=== PATIENT | female | born 1960 | race Caucasian/White ===

== ENCOUNTER 2020-05-13 09:32 | Emergency (ER) | payer MEDICARE, MEDICAID, SELFPAY ==
[2020-05-13 09:35] VITALS: BP 145/67; PULSE 68; RESP 20; TEMP 36.9; O2SAT 96; BMI 38.0
--- NOTE | 2020-05-13 09:42 | DI.RAD.S_ITS ---
PROCEDURE: XR CHEST 1V INDICATIONS: Flu like symptoms TECHNIQUE: One view of the chest was acquired. COMPARISON: None. FINDINGS: Surgical changes and devices: None. Lungs and pleura: Lungs are clear. No pleural effusions or pneumothorax. Mediastinum: Mediastinal contours appear normal. Heart size is normal. Bones and chest wall: No suspicious bony lesions. Overlying soft tissues appear unremarkable. IMPRESSION: No evidence acute pulmonary process. Dictated by: Car Cortés M.D. on 05/13/2020 at 9:55 Approved by: Car Cortés M.D. on 05/13/2020 at 9:55
--- NOTE | 2020-05-13 09:47 | ED_ITS ---
HPI - URI/Sore Throat General Chief Complaint: Upper Respiratory Symptoms Stated Complaint: fever/sneezing/cough/ears plugged x4 days Time Seen by Provider: 05/13/20 09:47 Source: patient Mode of arrival: Ambulatory Limitations: no limitations History of Present Illness HPI Narrative: 59-year-old woman with a history of anxiety/depression, hypertension, intermittent allergies and tobacco abuse presents with 5 days of increased nasal discharge, head stuffiness, difficulty breathing. She describes doing some gardening and tackling in [employer] that had quite a bit of mold at the central portion when she got to it. Initially she felt that all of her symptoms were attributable to hay fever but in the last 3 days she has had increasing productive cough, lost both smell and taste, increasing lethargy, an episode of loose stool, increasing cough and dyspnea. She describes no numbness, tingling, significant headaches, vomiting or abdominal pain. She does note that she has been having difficulty sleeping due to her cough. She has been trying a couple of different [id number] combination products to treat a fever and upper respiratory symptoms but isn't finding much relief. She does have a housemate and he too has been ill over the past 3 days. Related Data Home Medications Medication Instructions Recorded Confirmed amlodipine 5 mg PO QAM 05/13/20 05/13/20 citalopram 20 mg PO QAM 05/13/20 05/13/20 Previous Rx's Medication Instructions Recorded albuterol sulfate 2 inh INHALATION QID #18 g 05/13/20 prednisone 20 mg PO DAILY #5 tab 05/13/20 Allergies Allergy/AdvReac Type Severity Reaction Status Date / Time latex Allergy Mild Rash Verified 05/13/20 09:45 Review of Systems Review of Systems Narrative: Remainder of review of systems including constitutional, ENT, cardiovascular, respiratory, GI, , musculoskeletal, skin, neurologic and psychiatric systems reviewed and are unremarkable except as noted in HPI. Patient History Medical History Anxiety Hypertension Social History Smoking Status: Current every day smoker Smoking Status: Current every day smoker alcohol intake frequency: 0-2 drinks per day Substance Use Type: does not use Exam Narrative Exam Narrative: General: Healthy appearing, in mild distress. Able to give a complete and coherent history and speaking in full sentences. Well-nourished well-developed HEENT: Moist mucous membranes, normal sclera with reactive pupils, Neck: No JVD, supple Respiratory: Lungs with significant wheeze in all lung ny but no rales no rhonchi. symmetrical air movement without significant retraction Cardiac: Regular rate and rhythm no murmurs no bruits Abdomen: Soft, nontender, good bowel tones, no flank pain Skin: Warm and dry, no rashes Neurologic: Grossly neurologically intact with no obvious asymmetries or abnormalities Extremities: No trauma, well perfused, no lower extremity edema Psych: Cooperative, appropriate insight and affect Initial Vital Signs Initial Vital Signs: Vital Signs Temperature 98.5 F 05/13/20 09:35 Pulse Rate 68 05/13/20 09:35 Respiratory Rate 20 05/13/20 09:35 Blood Pressure 145/67 H 05/13/20 09:35 Pulse Oximetry 96 05/13/20 09:35 Course Orders Ordered: ED Orders 05/13/20 09:42 XR chest 1V Stat 05/13/20 09:46 COVID19 -Nasal swab/Pre-Proc Stat Discontinued Medications Albuterol/Ipratropium (Albuterol/Ipratropium 3 Ml Ampul) 3 ml INH NOW ONE Stop: 05/13/20 10:36 Last Admin: 05/13/20 10:46 Dose: 3 ml Documented by: Prednisone (Prednisone 20 Mg Tablet) 60 mg PO NOW ONE Stop: 05/13/20 10:36 Last Admin: 05/13/20 10:46 Dose: 60 mg Documented by: Vital Signs Vital signs: Vital Signs - 8 hr 05/13/20 09:35 05/13/20 10:51 Temperature 98.5 F Pulse Rate 68 65 Respiratory Rate 20 16 Blood Pressure 145/67 H Pulse Oximetry 96 97 MDM - URI/Sore Throat Medical Records Attestation: I reviewed the patient's medical records. Lab Data Attestation: I reviewed the patient's lab results. Labs: Lab Results 05/13/20 Range/Units 09:45 SARS-CoV-2 (PCR) Negative (Negative) Imaging Data Chest x-ray: Radiologist's Impression: FINDINGS: Surgical changes and devices: None. Lungs and pleura: Lungs are clear. No pleural effusions or pneumothorax. Mediastinum: Mediastinal contours appear normal. Heart size is normal. Bones and chest wall: No suspicious bony lesions. Overlying soft tissues appear unremarkable. IMPRESSION: No evidence acute pulmonary process. Dictated by: Car Cortés M.D. on 05/13/2020 at 9:55 MDM Narrative Medical decision making narrative: 59-year-old woman with 5 days of increasing upper respiratory symptoms and wheezing. No evidence of COVID, bacterial pneumonia, sepsis, acute coronary syndrome and no clinical suggestion of pulmonary embolism. She notes that she is a smoker but is cutting back is down to 3 cigarettes a day. She has significant wheeze in all lung ny initially, responding nicely to nebulizer. She started on oral steroids will be given an inhaler and will be discharged home. Discharge Plan Departure Patient Disposition: Home Clinical Impression: Viral infection Exacerbation of reactive airway disease Qualifiers: Asthma severity: unspecified severity Asthma persistence: unspecified Qualified Code(s): J45.901 - Unspecified asthma with (acute) exacerbation Instructions: DI for Viral Syndrome, DI for Reactive Airway Disease-Adult Activity Restrictions/Additional Instructions: Thank you for coming in today You do not have COVID and you are not showing any signs or symptoms of a bacterial infection in your lungs. Your chest x-ray is remarkably clear. You do have a significant amount of wheezing throughout all of her lungs. I have given you a 1st dose of oral steroid in the emergency department along with a nebulizer treatment. I am going to suggest that you complete 5 more days of steroids and use the albuterol inhaler 2 puffs 4 times a day until you are feeling better. I think that you will find that the albuterol puffs will help more with the cough than any of the other treatment sure currently on using. Please do follow-up with your primary care physician and if you feel that you are getting significantly worse, please return to the emergency department Prescriptions: New prednisone 20 mg tablet 20 mg PO DAILY Qty: 5 RF: 0 albuterol sulfate 90 mcg/actuation HFA aerosol inhaler 2 inh inhalation QID Qty: 18 RF: 0 No Action amlodipine 5 mg Tablet 5 mg PO QAM RF: 0 citalopram 20 mg Tablet 20 mg PO QAM RF: 0
--- NOTE | 2020-05-13 09:50 | PC.NURSE ---
pt states she was cutting down shrubs when this started, thought maybe that started it. but now has low grade fever.
[2020-05-13 10:07] LABS: COVID19 -Nasal RAPID Negative (Negative)
[2020-05-13] MEDS: predniSONE 20 MG TABLET 60 MG PO (10:46)
[2020-05-13] MEDS: ALBUTEROL/IPRATROPIUM 3 ML AMPUL INH (10:46)
[2020-05-13 10:51] VITALS: PULSE 65; RESP 16; O2SAT 97
[2020-05-13 11:18] VITALS: BP 128/60; PULSE 69; RESP 16; O2SAT 96
== END 2020-05-13 11:18 | disposition home or self-care (01) ==
PROVIDERS: Emergency Provider Emergency Medicine
DX: B34.9 Viral infection, unspecified (principal); Z20.822 Contact with and (suspected) exposure to COVID-19; J45.901 Unspecified asthma with (acute) exacerbation
CPT/HCPCS: 71045; 87635; 94640; 99283; 99284; C9803

== ENCOUNTER 2020-11-08 15:37 | Emergency (ER) | payer MEDICARE, MEDICAID, SELFPAY ==
[2020-11-08 15:48] VITALS: BP 162/79; PULSE 70; RESP 14; TEMP 36.7; O2SAT 98; BMI 34.7
--- NOTE | 2020-11-08 17:48 | PC.NURSE ---
called from [facility] @ [id number]. No answer.
--- NOTE | 2020-11-08 17:49 | ED.RECABL ---
HPI - Recheck/Abnormal Lab/Rx General Chief Complaint: Recheck/Abnormal Lab/Rx Stated Complaint: NEEDS LABS Time Seen by Provider: 11/08/20 17:42 Source: patient Mode of arrival: Ambulatory Limitations: no limitations Related Data Home Medications Medication Instructions Recorded Confirmed amlodipine 5 mg tablet 5 mg PO QAM 05/13/20 05/13/20 citalopram 20 mg tablet 20 mg PO QAM 05/13/20 05/13/20 Previous Rx's Medication Instructions Recorded albuterol sulfate 90 mcg/actuation 2 inh INHALATION QID #18 g 05/13/20 aerosol inhaler prednisone 20 mg tablet 20 mg PO DAILY #5 tab 05/13/20 Allergies Allergy/AdvReac Type Severity Reaction Status Date / Time latex Allergy Mild Rash Verified 11/08/20 15:48 Patient History Medical History Anxiety Hypertension Social History Smoking Status: Current every day smoker Smoking Status: Current every day smoker alcohol intake frequency: 0-2 drinks per day Substance Use Type: does not use Exam Initial Vital Signs Initial Vital Signs: Vital Signs Temperature 98.1 F 11/08/20 15:48 Pulse Rate 70 11/08/20 15:48 Respiratory Rate 14 11/08/20 15:48 Blood Pressure 162/79 H 11/08/20 15:48 Pulse Oximetry 98 11/08/20 15:48 Course Orders Ordered: ED Orders 11/08/20 16:11 HSV 1/2 DNA PCR SWAB or BLOOD Stat Vital Signs Vital signs: Vital Signs - 8 hr 11/08/20 15:48 Temperature 98.1 F Pulse Rate 70 Respiratory Rate 14 Blood Pressure 162/79 H Pulse Oximetry 98 MDM - Recheck/Abnormal Lab/Rx MDM Narrative Medical decision making narrative: Pt Left without being seen after labs were drawn. I did not get to see the patient. Discharge Plan Departure Patient Disposition: Home Clinical Impression: Encounter for routine laboratory testing Instructions: Herpes Simplex Virus Testing Activity Restrictions/Additional Instructions: Today we tested your blood for herpes 1 and herpes 2 via a PCR. It may take 3-5 days for the lab to finish the results. Unfortunately left without being seen and the flap. *What to do: *Please continue to take your regular medications as directed. [ ] New medication prescriptions sent to your pharmacy: [ ] [ ] New medication written as a paper prescription [ ] No new medications given *Please follow up with your primary care provider in 2-3 days, call for an appointment. Let them know you were seen in the Emergency Department and that we ask that you be seen in follow up. We will electronically transmit a record of today's note if your PCP is in our system *If you do not have a primary care provider please contact the [facility] Resource line at [phone]. They will ask some questions about your medical history and help get you set up with a doctor in the community. *Return to Emergency Department if you should have any new, worsening or concerning symptoms, such as [fever greater than 101F, chills, worsening pain, persistent vomiting or other bothersome symptoms] Prescriptions: No Action amlodipine 5 mg Tablet 5 mg PO QAM RF: 0 citalopram 20 mg Tablet 20 mg PO QAM RF: 0 prednisone 20 mg tablet 20 mg PO DAILY Qty: 5 RF: 0 albuterol sulfate 90 mcg/actuation HFA aerosol inhaler 2 inh inhalation QID Qty: 18 RF: 0
[2020-11-16 03:59] LABS: HSV 1 DNA Negative (Negative); HSV 2 DNA Negative (Negative)
== END 2020-11-08 18:20 | disposition left against medical advice (07) ==
PROVIDERS: Emergency Provider Nurse Practitioner Critical Care Medicine
DX: Z86.19 Personal history of other infectious and parasitic diseases (principal)
CPT/HCPCS: 36415; 87529; 99283

== ENCOUNTER 2021-06-16 09:20 | Emergency (ER) | payer MEDICARE, MEDICAID, SELFPAY ==
[2021-06-16 09:54] VITALS: BP 137/65; PULSE 53; RESP 14; TEMP 36.4; O2SAT 98; BMI 34.7
[2021-06-16 11:02] LABS: COVID19 -Nasal RAPID Negative (Negative)
--- NOTE | 2021-06-16 13:25 | DI.CT.S_ITS ---
PROCEDURE: CT HEAD/BRAIN WO CON INDICATIONS: New headache TECHNIQUE: Noncontrast 4.5 mm thick angled axial sections acquired from the foramen magnum to the vertex, with coronal and sagittal reformats. For radiation dose reduction, the following was used: automated exposure control, adjustment of mA and/or kV according to patient size. COMPARISON: None. FINDINGS: Image quality: Excellent. CSF spaces: Basal cisterns are patent. No extra-axial fluid collections. Ventricles are normal in size and shape. Brain: No midline shift. No intracranial masses or hemorrhage. Diallo-white matter interface is normal. Skull and face: Calvarium and visualized facial bones are intact, without suspicious lesions. Sinuses: Visualized sinuses and mastoids are clear. IMPRESSION: 1. No CT evidence of acute intracranial process. Dictated by: Salome Valenzuela M.D. on 06/16/2021 at 14:08 Approved by: Salome Valenzuela M.D. on 06/16/2021 at 14:09
[2021-06-16 14:04] LABS: Add Manual Diff / Slide Review NO; Basophils Absolute Auto 100 /uL (0-100); Basophils Percent Auto 0.8 % (0-2); Eosinophils Absolute Auto 300 /uL (0-450); Eosinophils Percent Auto 3.3 % (2-4); Hematocrit 39.7 % (36-46); Hemoglobin 13.7 g/dL (12.0-16.0); Lymphocytes Absolute Auto 2400 /uL (1100-4500); Mean Corpuscular HGB Conc 34.4 % (30-36); Mean Corpuscular Hemoglobin 29.2 PG (26-34); Mean Corpuscular Volume 84.9 fL (80-100); Monocytes Absolute Auto 600 /uL (0-900); Monocytes Percent Auto 6.8 % (3-14); Neutrophils Absolute Auto 5300 /uL (1500-7000); Neutrophils Percent Auto 61.1 % (50-75); Platelet Count 345 X10^3/uL (150-400); Red Blood Cell Count 4.67 X10^6/uL (4.0-5.2); Red Cell Distribution Width 13.3 % (11.6-14.8); White Blood Cell Count 8.6 X10^3/uL (4.5-11.0)
[2021-06-16 14:11] LABS: Prothrombin Time 11.1 SECONDS (10.1-12.7)
[2021-06-16 14:13] LABS: PTT Partial Thromboplastin Tim 32 SECONDS (26.4-36.2)
[2021-06-16] MEDS: PROPARACAINE 0.5% OPHTH SOL 1 DROPS EYE-BOTH (14:16)
[2021-06-16 14:17] LABS: Alanine Aminotransferase 21 IU/L (<35); Albumin 4.3 g/dL (3.5-5.0); Albumin Globulin Ratio 1.4 (1.0-2.8); Alkaline Phosphatase 65 U/L (38-126); Aspartate Aminotransferase 32 IU/L (14-36); BUN Creatinine Ratio 17.1 (6-22); Bilirubin Total 0.5 mg/dL (0.2-1.3); Blood Urea Nitrogen 14 mg/dL (7-17); Carbon Dioxide 26 mmol/L (22-32); Chloride 104 mmol/L (98-107); Estimated Glomerular Filt Rate > 60 mL/min (>60); Glucose 104 mg/dL (80-110); HEMOLYSIS < 15 (0-50); Lipase 201 U/L (23-300); Potassium 4.2 mmol/L (3.4-5.1); Sodium 137 mmol/L (137-145); Total Protein 7.3 g/dL (6.3-8.2)
[2021-06-16] MEDS: IBUPROFEN 400 MG TABLET 800 MG PO (14:29)
[2021-06-16 14:34] VITALS: BP 126/78; PULSE 62; RESP 16; O2SAT 97
--- NOTE | 2021-06-16 16:55 | ED.HA ---
HPI - Headache <Kerline Zambrano PA-C - Last Filed: 06/16/21 20:13> General Chief Complaint: Headache Stated Complaint: Headache, no appetite, gunky eyes Time Seen by Provider: 06/16/21 09:41 Mode of arrival: Ambulatory History of Present Illness HPI Narrative: 60-year-old female with past medical history abnormal parathyroid presents to the ED with 10 days of headache. Patient states that she does not normally have headaches, this headache started as a right-sided headache around her eye and behind her eye and then moved bilaterally. Patient states that this is a new type of headache for her. Patient also states that she was exposed to somebody with the COVID-19 infection 5 days prior to arrival. Around the same time patient started experiencing URI symptoms including fatigue, cough, sore throat, bilateral red eyes. Patient also endorses anorexia for the last 10 days. Denies fever, chills, chest pain, shortness of breath, nausea, vomiting, abdominal pain, dysuria, lightheadedness, dizziness, syncope. Related Data Home Medications Medication Instructions Recorded Confirmed amlodipine 5 mg tablet 5 mg PO QAM 05/13/20 05/13/20 citalopram 20 mg tablet 20 mg PO QAM 05/13/20 05/13/20 Previous Rx's Medication Instructions Recorded albuterol sulfate 90 mcg/actuation 2 inh INHALATION QID #18 g 05/13/20 aerosol inhaler prednisone 20 mg tablet 20 mg PO DAILY #5 tab 05/13/20 Allergies Allergy/AdvReac Type Severity Reaction Status Date / Time latex Allergy Mild Rash Verified 11/08/20 15:48 Review of Systems <Kerline Zambrano PA-C - Last Filed: 06/16/21 20:13> Review of Systems ROS Unobtainable: All systems reviewed & are unremarkable except as noted in HPI and below Constitutional Constitutional: Denies chills, Reports fatigue, Denies fever(s), Denies frequent falls, Reports headache(s), Denies lethargy and Denies weakness Eyes Eyes: Denies change in vision, Denies eye discharge, Denies irritation and Denies loss of vision ENT Ears, Nose, Mouth, and Throat: Denies change in voice, Denies dizziness, Reports headache(s), Denies neck pain, Reports sore throat and Denies throat swelling Cardiovascular Cardiovascular: Denies chest pain, Denies irregular heart rhythm, Denies lightheadedness, Denies palpitations, Denies dyspnea, Denies dyspnea on exertion and Denies orthopnea Respiratory Respiratory: Reports cough, Denies dyspnea, Denies dyspnea on exertion and Denies wheezing Gastrointestinal Gastrointestinal: Denies abdominal pain, Denies change in bowel habits, Denies diarrhea, Denies nausea and Denies vomiting Genitourinary Genitourinary: Denies hematuria, Denies flank pain, Denies urinary incontinence and Denies urinary urgency Musculoskeletal Musculoskeletal: Denies back pain, Denies muscle weakness, Denies neck pain, Denies numbness and Denies tingling Integumentary/Breasts Skin/Breast: Denies pruritus, Denies erythema, Denies rash and Denies wounds Neurologic Neurologic: Denies behavioral changes, Denies confusion, Denies dizziness, Denies frequent falls, Reports headache(s), Denies loss of vision, Denies numbness, Denies tingling and Denies weakness Psychiatric Psychiatric: Denies anxiety, Denies behavioral changes, Denies confusion, Denies depression, Denies homicidal ideation and Denies suicidal ideation Endocrine Endocrine: Reports fatigue, Denies flushing and Denies palpitations Hematologic/Lymphatic Hematologic/Lymphatic: Denies easy bruising Allergic/Immunologic Allergic/Immunologic: Denies urticaria, Denies throat swelling and Denies wheezing Patient History <Kerline Zambrano PA-C - Last Filed: 06/16/21 20:13> Medical History Anxiety Hypertension Social History Smoking Status: Current every day smoker Smoking Status: Current every day smoker alcohol intake frequency: 0-2 drinks per day Substance Use Type: does not use Exam <Kerline Zambrano PA-C - Last Filed: 06/16/21 20:13> Initial Vital Signs Initial Vital Signs: Vital Signs Temperature 97.6 F 06/16/21 09:54 Pulse Rate 53 L 06/16/21 09:54 Respiratory Rate 14 06/16/21 09:54 Blood Pressure 137/65 06/16/21 09:54 Pulse Oximetry 98 06/16/21 09:54 Const General: cooperative, healthy appearing and comfortable [facility] Head: normal to inspection Ears: hearing grossly normal bilaterally Face and sinus: normal facial exam Eyes General: Yes appearance normal, both eyes and all related structures Neck Neck: normal visual inspection, full ROM and no meningeal signs Chest Chest: normal inspection of the chest Resp Effort & Inspection: normal respiratory effort Auscultation: clear to auscultation bilaterally Cardio Rate: regular rate Rhythm: regular rhythm GI Other: Abdomen is soft, nondistended, nontender to palpation. Skin General: no rashes or lesions noted Neuro General: patient alert, patient awake and patient oriented x3 Cranial Nerves: CN's II-XI intact bilaterally Cognition: normal cognition Speech: speech normal Gait: normal gait Motor: muscle tone normal throughout Sensory Exam: no sensory deficits noted Coordination: [id number] test normal, [id number] test normal and Romberg test normal Other: PERRLA. Patient is neurologically intact. Extrem General: normal to inspection Psych Appearance: grossly normal Mental Status: mental status grossly normal <Cristian Upton DO - Last Filed: 06/21/21 01:36> Initial Vital Signs Initial Vital Signs: Vital Signs Temperature 97.6 F 06/16/21 09:54 Pulse Rate 53 L 06/16/21 09:54 Respiratory Rate 14 06/16/21 09:54 Blood Pressure 137/65 06/16/21 09:54 Pulse Oximetry 98 06/16/21 09:54 Course <Kerline Zambrano PA-C - Last Filed: 06/16/21 20:13> Orders Ordered: Discontinued Medications Ibuprofen (Ibuprofen 400 Mg Tablet) 800 mg PO NOW ONE Stop: 06/16/21 14:25 Last Admin: 06/16/21 14:29 Dose: 800 mg Documented by: DESHAUN Proparacaine HCl (Proparacaine 0.5% Ophth Ольга) 1 drops EYE-BOTH NOW ONE Stop: 06/16/21 14:13 Last Admin: 06/16/21 14:16 Dose: 1 drop Documented by: DESHAUN Vital Signs Vital signs: Vital Signs - 8 hr 06/16/21 14:34 Pulse Rate 62 Respiratory Rate 16 Blood Pressure 126/78 Pulse Oximetry 97 <Cristian Upton DO - Last Filed: 06/21/21 01:36> Orders Ordered: Discontinued Medications Ibuprofen (Ibuprofen 400 Mg Tablet) 800 mg PO NOW ONE Stop: 06/16/21 14:25 Last Admin: 06/16/21 14:29 Dose: 800 mg Documented by: DESHAUN Proparacaine HCl (Proparacaine 0.5% Ophth Ольга) 1 drops EYE-BOTH NOW ONE Stop: 06/16/21 14:13 Last Admin: 06/16/21 14:16 Dose: 1 drop Documented by: DESHAUN Vital Signs Vital signs: Vital Signs - 8 hr 06/16/21 14:34 Pulse Rate 62 Respiratory Rate 16 Blood Pressure 126/78 Pulse Oximetry 97 MDM - Headache <Kerline Zambrano PA-C - Last Filed: 06/16/21 20:13> Medical Records Attestation: I reviewed the patient's medical records. Lab Data Attestation: I reviewed the patient's lab results. Lab results narrative: Labs within normal limits. COVID-19 negative. Result diagrams: 06/16/21 13:46 06/16/21 13:46 Labs: Lab Results 06/16/21 06/16/21 06/16/21 Range/Units 10:02 13:46 13:46 WBC 8.6 (4.5-11.0) X10^3/uL RBC 4.67 (4.0-5.2) X10^6/uL Hgb 13.7 (12.0-16.0) g/dL Hct 39.7 (36-46) % MCV 84.9 (80-100) fL MCH 29.2 (26-34) PG MCHC 34.4 (30-36) % RDW 13.3 (11.6-14.8) % Plt Count 345 (150-400) X10^3/uL Neut % (Auto) 61.1 (50-75) % Lymph % (Auto) 28.0 (25-40) % [place] % (Auto) 6.8 (3-14) % Eos % (Auto) 3.3 (2-4) % Baso % (Auto) 0.8 (0-2) % Neut # (Auto) 5300 (6653-9401) /uL Lymph # (Auto) 2400 (5767-3682) /uL [place] # (Auto) 600 (0-900) /uL Eos # (Auto) 300 (0-450) /uL Baso # (Auto) 100 (0-100) /uL PT 11.1 (10.1-12.7) SECONDS INR 1.0 (0.9-1.3) APTT 32 (26.4-36.2) SECONDS Sodium (137-145) mmol/L Potassium (3.4-5.1) mmol/L Chloride (98-107) mmol/L Carbon Dioxide (22-32) mmol/L BUN (7-17) mg/dL Creatinine (0.52-1.04) mg/dL Estimated GFR (>60) mL/min BUN/Creatinine Ratio (6-22) Glucose (80-110) mg/dL Calcium (8.4-10.2) mg/dL Total Bilirubin (0.2-1.3) mg/dL AST (14-36) IU/L ALT (<35) IU/L Alkaline Phosphatase (38-126) U/L Total Protein (6.3-8.2) g/dL Albumin (3.5-5.0) g/dL Globulin (1.7-4.1) g/dL Albumin/Globulin Ratio (1.0-2.8) Lipase (23-300) U/L SARS-CoV-2 (PCR) Negative (Negative) 06/16/21 06/16/21 Range/Units 13:46 13:46 WBC (4.5-11.0) X10^3/uL RBC (4.0-5.2) X10^6/uL Hgb (12.0-16.0) g/dL Hct (36-46) % MCV (80-100) fL MCH (26-34) PG MCHC (30-36) % RDW (11.6-14.8) % Plt Count (150-400) X10^3/uL Neut % (Auto) (50-75) % Lymph % (Auto) (25-40) % [place] % (Auto) (3-14) % Eos % (Auto) (2-4) % Baso % (Auto) (0-2) % Neut # (Auto) (9903-4785) /uL Lymph # (Auto) (2258-4290) /uL [place] # (Auto) (0-900) /uL Eos # (Auto) (0-450) /uL Baso # (Auto) (0-100) /uL PT (10.1-12.7) SECONDS INR (0.9-1.3) APTT (26.4-36.2) SECONDS Sodium 137 (137-145) mmol/L Potassium 4.2 (3.4-5.1) mmol/L Chloride 104 (98-107) mmol/L Carbon Dioxide 26 (22-32) mmol/L BUN 14 (7-17) mg/dL Creatinine 0.82 (0.52-1.04) mg/dL Estimated GFR > 60 (>60) mL/min BUN/Creatinine Ratio 17.1 (6-22) Glucose 104 (80-110) mg/dL Calcium 10.0 (8.4-10.2) mg/dL Total Bilirubin 0.5 (0.2-1.3) mg/dL AST 32 (14-36) IU/L ALT 21 (<35) IU/L Alkaline Phosphatase 65 (38-126) U/L Total Protein 7.3 (6.3-8.2) g/dL Albumin 4.3 (3.5-5.0) g/dL Globulin 3.0 (1.7-4.1) g/dL Albumin/Globulin Ratio 1.4 (1.0-2.8) Lipase 201 (23-300) U/L SARS-CoV-2 (PCR) (Negative) Imaging Data CT scan - head: Radiologist's Impression: PROCEDURE:? CT HEAD/BRAIN WO CON ? INDICATIONS:? New headache ? TECHNIQUE:? Noncontrast 4.5 mm thick angled axial sections acquired from the foramen magnum to the vertex, with coronal and sagittal reformats.? For radiation dose reduction, the following was used:? automated exposure control, adjustment of mA and/or kV according to patient size.? ? COMPARISON:? None. ? FINDINGS:? Image quality:? Excellent.? ? CSF spaces:? Basal cisterns are patent.? No extra-axial fluid collections.? Ventricles are normal in size and shape.? ? Brain:? No midline shift.? No intracranial masses or hemorrhage.? Diallo-white matter interface is normal.? ? Skull and face:? Calvarium and visualized facial bones are intact, without suspicious lesions.? ? Sinuses:? Visualized sinuses and mastoids are clear.? ? IMPRESSION:? ? 1. No CT evidence of acute intracranial process. ? ? ? Dictated by: Salome Valenzuela M.D. on 06/16/2021 at 14:08 ? ? Approved by: Salome Valenzuela M.D. on 06/16/2021 at 14:09 ? [facility] Narrative Medical decision making narrative: 60-year-old female with past medical history abnormal parathyroid presents to the ED with 10 days of headache. Concern for primary headache versus COVID-19 infection versus glaucoma versus intracranial tumor versus intracranial bleeding versus other URI syndrome. Will obtain labs, CT head, COVID-19 test. Will check IOP. IOP WNL. OD: 15 mmHG; OS 16mmHG. CT head without acute findings. COVID-19 test was negative. Labs within normal limits. Patient's symptoms likely due to a viral URI syndrome. Supportive measures discussed with patient. ED return precautions discussed with patient. Patient verbalized understanding. <Cristian Upton DO - Last Filed: 06/21/21 01:36> Lab Data Labs: Lab Results 06/16/21 06/16/21 06/16/21 Range/Units 10:02 13:46 13:46 WBC 8.6 (4.5-11.0) X10^3/uL RBC 4.67 (4.0-5.2) X10^6/uL Hgb 13.7 (12.0-16.0) g/dL Hct 39.7 (36-46) % MCV 84.9 (80-100) fL MCH 29.2 (26-34) PG MCHC 34.4 (30-36) % RDW 13.3 (11.6-14.8) % Plt Count 345 (150-400) X10^3/uL Neut % (Auto) 61.1 (50-75) % Lymph % (Auto) 28.0 (25-40) % [place] % (Auto) 6.8 (3-14) % Eos % (Auto) 3.3 (2-4) % Baso % (Auto) 0.8 (0-2) % Neut # (Auto) 5300 (2792-1239) /uL Lymph # (Auto) 2400 (8876-9691) /uL [place] # (Auto) 600 (0-900) /uL Eos # (Auto) 300 (0-450) /uL Baso # (Auto) 100 (0-100) /uL PT 11.1 (10.1-12.7) SECONDS INR 1.0 (0.9-1.3) APTT 32 (26.4-36.2) SECONDS Sodium (137-145) mmol/L Potassium (3.4-5.1) mmol/L Chloride (98-107) mmol/L Carbon Dioxide (22-32) mmol/L BUN (7-17) mg/dL Creatinine (0.52-1.04) mg/dL Estimated GFR (>60) mL/min BUN/Creatinine Ratio (6-22) Glucose (80-110) mg/dL Calcium (8.4-10.2) mg/dL Total Bilirubin (0.2-1.3) mg/dL AST (14-36) IU/L ALT (<35) IU/L Alkaline Phosphatase (38-126) U/L Total Protein (6.3-8.2) g/dL Albumin (3.5-5.0) g/dL Globulin (1.7-4.1) g/dL Albumin/Globulin Ratio (1.0-2.8) Lipase (23-300) U/L SARS-CoV-2 (PCR) Negative (Negative) 06/16/21 06/16/21 Range/Units 13:46 13:46 WBC (4.5-11.0) X10^3/uL RBC (4.0-5.2) X10^6/uL Hgb (12.0-16.0) g/dL Hct (36-46) % MCV (80-100) fL MCH (26-34) PG MCHC (30-36) % RDW (11.6-14.8) % Plt Count (150-400) X10^3/uL Neut % (Auto) (50-75) % Lymph % (Auto) (25-40) % [place] % (Auto) (3-14) % Eos % (Auto) (2-4) % Baso % (Auto) (0-2) % Neut # (Auto) (5635-9668) /uL Lymph # (Auto) (2947-4463) /uL [place] # (Auto) (0-900) /uL Eos # (Auto) (0-450) /uL Baso # (Auto) (0-100) /uL PT (10.1-12.7) SECONDS INR (0.9-1.3) APTT (26.4-36.2) SECONDS Sodium 137 (137-145) mmol/L Potassium 4.2 (3.4-5.1) mmol/L Chloride 104 (98-107) mmol/L Carbon Dioxide 26 (22-32) mmol/L BUN 14 (7-17) mg/dL Creatinine 0.82 (0.52-1.04) mg/dL Estimated GFR > 60 (>60) mL/min BUN/Creatinine Ratio 17.1 (6-22) Glucose 104 (80-110) mg/dL Calcium 10.0 (8.4-10.2) mg/dL Total Bilirubin 0.5 (0.2-1.3) mg/dL AST 32 (14-36) IU/L ALT 21 (<35) IU/L Alkaline Phosphatase 65 (38-126) U/L Total Protein 7.3 (6.3-8.2) g/dL Albumin 4.3 (3.5-5.0) g/dL Globulin 3.0 (1.7-4.1) g/dL Albumin/Globulin Ratio 1.4 (1.0-2.8) Lipase 201 (23-300) U/L SARS-CoV-2 (PCR) (Negative) Discharge Plan Departure Patient Disposition: Home Clinical Impression: Headache Instructions: DI for Viral Upper Respiratory Infection -- Adult, DI for Headache Activity Restrictions/Additional Instructions: You were evaluated in the ED today for a headache, eye pain and URI symptoms. Your CT head was normal. Your eye pressures were normal. Your labs were normal. Your symptoms are likely due to a viral upper respiratory infection. Your COVID-19 test was negative today in the ED, however you may repeat a home test in 2-3 days. Return to the ED if you have worsening symptoms, vision disturbances, uncontrollable nausea, vomiting, fever. Prescriptions: No Action amlodipine 5 mg Tablet 5 mg PO QAM 0RF Label Comments: pt thinks 5 mg but not sure. citalopram 20 mg Tablet 20 mg PO QAM 0RF prednisone 20 mg tablet 20 mg PO DAILY Qty: 5 0RF albuterol sulfate 90 mcg/actuation HFA aerosol inhaler 2 inh inhalation QID Qty: 18 0RF Rx Instructions: please dispense spacer as well as instructions in use <Cristian Upton, DO - Last Filed: 06/21/21 01:36> Cosign ED Attending [place] Attestation: I was immediately available in the department for consultation. Documentation has been reviewed. I agree with assessment and plan.
== END 2021-06-16 14:35 | disposition home or self-care (01) ==
PROVIDERS: Emergency Medicine; Emergency Provider Student in an Organized Health Care Education/Training Program
DX: R51.9 Headache, unspecified (principal); Z20.822 Contact with and (suspected) exposure to COVID-19
CPT/HCPCS: 36415; 70450; 80053; 83690; 85025; 85610; 85730; 87635; 99283; 99284; C9803

== ENCOUNTER 2022-05-12 19:14 | Emergency (ER) | payer MEDICARE, MEDICAID, SELFPAY ==
[2022-05-12 19:22] VITALS: BP 210/99; PULSE 82; RESP 16; TEMP 36.8; O2SAT 98; BMI 37.5
[2022-05-12 19:23] VITALS: BP 214/98; PULSE 71; O2SAT 98
--- NOTE | 2022-05-12 19:26 | DI.RAD.S_ITS ---
PROCEDURE: XR CHEST 1V INDICATIONS: Shortness of breath TECHNIQUE: One view of the chest was acquired. COMPARISON: [facility], CR, XR CHEST 1V, 05/13/2020, 9:44. FINDINGS: Surgical changes and devices: None. Lungs and pleura: Lungs are clear. No pleural effusions or pneumothorax. Mediastinum: Mediastinal contours appear normal. Heart size is normal. Bones and chest wall: No suspicious bony lesions. Overlying soft tissues appear unremarkable. IMPRESSION: 1. No acute cardiopulmonary disease. Dictated by: Song Lang M.D. on 05/12/2022 at 20:33 Approved by: Song Lang M.D. on 05/12/2022 at 20:33
[2022-05-12 19:30] VITALS: BP 196/86; PULSE 64; O2SAT 97
[2022-05-12 19:56] LABS: Add Manual Diff / Slide Review NO; Basophils Absolute Auto 100 /uL (0-100); Basophils Percent Auto 0.7 % (0-2); Eosinophils Absolute Auto 400 /uL (0-450); Eosinophils Percent Auto 4.7 % (2-4); Hematocrit 37.3 % (36-46); Hemoglobin 12.8 g/dL (12.0-16.0); Lymphocytes Absolute Auto 3000 /uL (1100-4500); Lymphocytes Percent Auto 33.3 % (25-40); Mean Corpuscular HGB Conc 34.4 % (30-36); Mean Corpuscular Hemoglobin 28.8 PG (26-34); Monocytes Absolute Auto 800 /uL (0-900); Monocytes Percent Auto 9.4 % (3-14); Neutrophils Absolute Auto 4700 /uL (1500-7000); Neutrophils Percent Auto 51.9 % (50-75); Platelet Count 318 X10^3/uL (150-400); Red Blood Cell Count 4.45 X10^6/uL (4.0-5.2); Red Cell Distribution Width 13.2 % (11.6-14.8); White Blood Cell Count 9.1 X10^3/uL (4.5-11.0)
[2022-05-12 20:00] VITALS: PULSE 59; RESP 14; O2SAT 97
[2022-05-12 20:01] VITALS: BP 212/93; PULSE 59; RESP 13; O2SAT 97
[2022-05-12 20:03] LABS: INR 0.9 (0.9-1.3); Prothrombin Time 10.6 SECONDS (10.1-12.7)
[2022-05-12 20:09] LABS: Alanine Aminotransferase 24 IU/L (<35); Albumin Globulin Ratio 1.3 (1.0-2.8); Alkaline Phosphatase 57 U/L (38-126); Aspartate Aminotransferase 22 IU/L (14-36); BUN Creatinine Ratio 26.4 (6-22); Bilirubin Total 0.4 mg/dL (0.2-1.3); Blood Urea Nitrogen 19 mg/dL (7-17); Calcium 8.7 mg/dL (8.4-10.2); Carbon Dioxide 30 mmol/L (22-32); Chloride 100 mmol/L (98-107); Estimated Glomerular Filt Rate > 60 mL/min (>60); Globulin 3.2 g/dL (1.7-4.1); Glucose 97 mg/dL (80-110); HEMOLYSIS < 15 (0-50); Lactate (Lactic Acid) 0.9 mmol/L (0.7-2.1); Potassium 3.9 mmol/L (3.4-5.1); Sodium 135 mmol/L (137-145); Total Protein 7.2 g/dL (6.3-8.2)
[2022-05-12 20:20] LABS: NT-proBNP (BNP-Adult 18+) 197 pg/mL (<125); Troponin I < 0.012 ng/mL (0.01-0.034)
[2022-05-12 20:33] LABS: Influenza A - CEPHEID Flu A NEGATIVE (NEGATIVE); Influenza B - CEPHEID Flu B NEGATIVE (NEGATIVE); Respiratory Syncytial Virus Negative (Negative)
--- NOTE | 2022-05-12 20:35 | ED_ITS ---
HPI - General Adult General Chief complaint: Shortness of Breath/Dyspnea Stated complaint: difficulty breathing, thinks pneumonia Time Seen by Provider: 05/12/22 19:47 Source: patient Mode of arrival: Ambulatory History of Present Illness HPI narrative: 61-year-old woman with a history of hypertension, intermittent allergies, question of reactive airway disease, continued tobacco abuse, anxiety/depression presents with 3-4 days of cough, sore throat and comes in for further evaluation today. She notes that she has used inhalers in the past when she is had upper respiratory infections. She complains of a cough that seems that it is having more yellow and green sputum 1st thing in the morning. Over the last couple of days she has been smoking less because she has been feeling unwell. You complains of mild sore throat, no fevers, nausea vomiting, diarrhea, abdominal pain, chest pain, palpitations, lower extremity edema Related Data Home Medications Medication Instructions Recorded Confirmed amlodipine 5 mg tablet 5 mg PO QAM 05/13/20 05/13/20 citalopram 20 mg tablet 20 mg PO QAM 05/13/20 05/13/20 Previous Rx's Medication Instructions Recorded albuterol sulfate 90 mcg/actuation 2 inh inhalation QID #18 grams 05/13/20 aerosol inhaler prednisone 20 mg tablet 20 mg PO DAILY #5 tabs 05/13/20 Allergies Allergy/AdvReac Type Severity Reaction Status Date / Time latex Allergy Mild Rash Verified 11/08/20 15:48 Review of Systems Review of Systems Narrative: Pertinent positive and negative findings as per HPI Patient History Medical History Anxiety Hypertension Social History Smoking Status: Current every day smoker Smoking Status: Current every day smoker tobacco type: cigarettes alcohol intake frequency: 0-2 drinks per day Substance Use Type: does not use Exam Initial Vital Signs Initial Vital Signs: Vital Signs Temperature 98.3 F 05/12/22 19:22 Pulse Rate 82 05/12/22 19:22 Respiratory Rate 16 05/12/22 19:22 Blood Pressure 210/99 H 05/12/22 19:22 Pulse Oximetry 98 05/12/22 19:22 Oxygen Delivery Method Room Air 05/12/22 19:22 General: Healthy appearing, in no acute distress. Able to give a complete and coherent history. Well-nourished well-developed HEENT: Moist mucous membranes, normal sclera with reactive pupils, Neck: No JVD, supple Respiratory: Lungs are clear to auscultation, no wheezing no rales no rhonchi. Full and symmetrical air movement Cardiac: Regular rate and rhythm no murmurs no bruits Abdomen: Soft, nontender, good bowel tones, no flank pain Skin: Warm and dry, no rashes Neurologic: Grossly neurologically intact with no obvious asymmetries or abnormalities Extremities: No trauma, well perfused Psych: Cooperative, appropriate insight and affect Course Orders Ordered: ED Orders 05/12/22 19:26 XR chest 1V Stat EKG-12 Lead Stat Measure peak expiratory flow ONCE RT Consult Eval and Treat NOW 05/12/22 19:40 Complete Blood Count AUTO DIFF Stat Comprehensive Metabolic Panel Stat Covid-19 + FLU A/B + RSV - PCR Stat Lactate (Lactic Acid) Stat NT-proBNP (BNP-Adult 18+) Stat Prothrombin Time INR Stat Troponin I Stat Discontinued Medications Albuterol (Albuterol Hfa Mdi 60 Puff/8 Gm Inhaler) 2 puff INH NOW ONE Stop: 05/12/22 20:51 Last Admin: 05/12/22 20:58 Dose: 2 puff Documented By: MR Vital Signs Vital signs: Vital Signs - 8 hr 05/12/22 19:22 05/12/22 20:58 05/12/22 19:22 Temperature 98.3 F Pulse Rate 82 Respiratory Rate 16 Blood Pressure 210/99 H 185/85 H 210/99 H Pulse Oximetry 98 Oxygen Delivery Method Room Air 05/12/22 19:23 05/12/22 19:23 05/12/22 19:30 Temperature Pulse Rate 71 Respiratory Rate Blood Pressure 214/98 H 196/86 H Pulse Oximetry 98 Oxygen Delivery Method 05/12/22 19:30 05/12/22 20:00 05/12/22 20:01 Temperature Pulse Rate 64 59 L 59 L Respiratory Rate 14 13 Blood Pressure Pulse Oximetry 97 97 97 Oxygen Delivery Method 05/12/22 20:01 Temperature Pulse Rate Respiratory Rate Blood Pressure 212/93 H Pulse Oximetry Oxygen Delivery Method Medical Decision Making Lab Data 05/12/22 19:40 05/12/22 19:40 Labs: Lab Results 05/12/22 05/12/22 05/12/22 Range/Units 19:40 19:40 19:40 WBC 9.1 (4.5-11.0) X10^3/uL RBC 4.45 (4.0-5.2) X10^6/uL Hgb 12.8 (12.0-16.0) g/dL Hct 37.3 (36-46) % MCV 84.0 (80-100) fL MCH 28.8 (26-34) PG MCHC 34.4 (30-36) % RDW 13.2 (11.6-14.8) % Plt Count 318 (150-400) X10^3/uL Neut % (Auto) 51.9 (50-75) % Lymph % (Auto) 33.3 (25-40) % [place] % (Auto) 9.4 (3-14) % Eos % (Auto) 4.7 H (2-4) % Baso % (Auto) 0.7 (0-2) % Neut # (Auto) 4700 (9652-4138) /uL Lymph # (Auto) 3000 (6569-5454) /uL [place] # (Auto) 800 (0-900) /uL Eos # (Auto) 400 (0-450) /uL Baso # (Auto) 100 (0-100) /uL PT 10.6 (10.1-12.7) SECONDS INR 0.9 (0.9-1.3) Sodium (137-145) mmol/L Potassium (3.4-5.1) mmol/L Chloride (98-107) mmol/L Carbon Dioxide (22-32) mmol/L BUN (7-17) mg/dL Creatinine (0.52-1.04) mg/dL Estimated GFR (>60) mL/min BUN/Creatinine Ratio (6-22) Glucose (80-110) mg/dL Lactate (0.7-2.1) mmol/L Calcium (8.4-10.2) mg/dL Total Bilirubin (0.2-1.3) mg/dL AST (14-36) IU/L ALT (<35) IU/L Alkaline Phosphatase (38-126) U/L Troponin I (0.01-0.034) ng/mL NT-Pro-B Natriuret Pep (<125) pg/mL Total Protein (6.3-8.2) g/dL Albumin (3.5-5.0) g/dL Globulin (1.7-4.1) g/dL Albumin/Globulin Ratio (1.0-2.8) SARS-CoV-2 (PCR) Negative (Negative) Influenza A (RT-PCR) Flu a negative (NEGATIVE) Influenza B (RT-PCR) Flu b negative (NEGATIVE) RSV (PCR) Negative (Negative) 05/12/22 05/12/22 Range/Units 19:40 19:40 WBC (4.5-11.0) X10^3/uL RBC (4.0-5.2) X10^6/uL Hgb (12.0-16.0) g/dL Hct (36-46) % MCV (80-100) fL MCH (26-34) PG MCHC (30-36) % RDW (11.6-14.8) % Plt Count (150-400) X10^3/uL Neut % (Auto) (50-75) % Lymph % (Auto) (25-40) % [place] % (Auto) (3-14) % Eos % (Auto) (2-4) % Baso % (Auto) (0-2) % Neut # (Auto) (5730-6113) /uL Lymph # (Auto) (8051-8253) /uL [place] # (Auto) (0-900) /uL Eos # (Auto) (0-450) /uL Baso # (Auto) (0-100) /uL PT (10.1-12.7) SECONDS INR (0.9-1.3) Sodium 135 L (137-145) mmol/L Potassium 3.9 (3.4-5.1) mmol/L Chloride 100 (98-107) mmol/L Carbon Dioxide 30 (22-32) mmol/L BUN 19 H (7-17) mg/dL Creatinine 0.72 (0.52-1.04) mg/dL Estimated GFR > 60 (>60) mL/min BUN/Creatinine Ratio 26.4 H (6-22) Glucose 97 (80-110) mg/dL Lactate 0.9 (0.7-2.1) mmol/L Calcium 8.7 (8.4-10.2) mg/dL Total Bilirubin 0.4 (0.2-1.3) mg/dL AST 22 (14-36) IU/L ALT 24 (<35) IU/L Alkaline Phosphatase 57 (38-126) U/L Troponin I < 0.012 (0.01-0.034) ng/mL NT-Pro-B Natriuret Pep 197 H (<125) pg/mL Total Protein 7.2 (6.3-8.2) g/dL Albumin 4.0 (3.5-5.0) g/dL Globulin 3.2 (1.7-4.1) g/dL Albumin/Globulin Ratio 1.3 (1.0-2.8) SARS-CoV-2 (PCR) (Negative) Influenza A (RT-PCR) (NEGATIVE) Influenza B (RT-PCR) (NEGATIVE) RSV (PCR) (Negative) MDM Narrative Medical decision making narrative: CC: 3 days of dyspnea and general malaise Complicating co-morbidities: Mild intermittent asthma, continued tobacco abuse, hypertension Corroborating data: Data collected from: patient, Social determinants of health that may influence the patients condition: Inappropriately treated asthma, hypertension Medical records reviewed: Prior ER notes are reviewed Differential considered: Upper respiratory infection, bacterial pneumonia, acute asthma exacerbation Exam documented above, pertinent findings include: Minimal wheezing remainder exam is benign Lab Test results independently reviewed as above. Pertinent findings: CBC is unremarkable Chemistries are reassuring Troponin is negative ProBNP is minimally elevated at 197 without secondary signs or symptoms of congestive heart failure Independently reviewed EKG Sinus rhythm at a rate of 62 Normal intervals, normal axis No acute ischemic changes Imaging studies independently reviewed: Chest x-ray shows no acute cardiopulmonary disease Discussion: 61-year-old woman with upper respiratory symptoms for the last 3-4 days. Benign exam. Mild wheezing. She is given an albuterol nebulizer with spacer along with instructions on use. Antibiotics are not indicated at this time. There is no evidence of respiratory failure, need for additional imaging or hospitalization. No sign of congestive heart failure or acute coronary syndrome. I do not suspect pulmonary embolism. Her blood pressure is elevated but she notes that she ?probably? has not been taking her blood pressure medications because she is been feeling unwell. At this point she is safe for home discharge questions are answered. Discharge Plan Departure Patient Disposition: Home Clinical Impression: Acute upper respiratory infection Exacerbation of reactive airway disease Qualifiers: Asthma severity: mild Asthma persistence: intermittent Qualified Code(s): J45.21 - Mild intermittent asthma with (acute) exacerbation Hypertension Qualifiers: Hypertension type: primary hypertension Qualified Code(s): I10 - Essential (primary) hypertension Instructions: DI for Viral Upper Respiratory Infection -- Adult Activity Restrictions/Additional Instructions: Thank you for coming in today I suspect you have a low-grade virus that is causing your initial symptoms and with your mild asthma, your cough is somewhat worse. Fortunately your clinical exam today is quite reassuring. Your chest x-ray does not suggest severe fluid overload or bacterial pneumonia. I have given you an albuterol inhaler to use 2 puffs up to 4 times a day for cough. Please use the spacer with it to make the medicine as effective as possible. You are welcome to refill prior prescriptions have been [place], I have given you a new written 1 if you choose to have it filled here in [place] Regarding your blood pressure, you do need to make sure that you are taking your medications regularly. I would also recommend getting a blood pressure cuff and checking blood pressures on a daily basis, keeping track of these numbers on your phone and reviewing with your primary care doctor with a follow-up appointment to discuss blood pressure issues. If you find that you are getting worse or develop any new symptoms, please feel free to return to the emergency department for further evaluation. Prescriptions: No Action amlodipine 5 mg Tablet 5 mg PO QAM Patient Comments: pt thinks 5 mg but not sure. citalopram 20 mg Tablet 20 mg PO QAM prednisone 20 mg tablet 20 mg PO DAILY Qty: 5 0RF albuterol sulfate 90 mcg/actuation HFA aerosol inhaler 2 inh inhalation QID Qty: 18 0RF Rx Instructions: please dispense spacer as well as instructions in use Stand Alone Forms: Patient Portal/API
[2022-05-12 20:36] LABS: COVID-19 CEPHEID 4-PLEX PCR Negative (Negative)
[2022-05-12 20:58] VITALS: BP 185/85
[2022-05-12] MEDS: ALBUTEROL HFA MDI 60 PUFF/8 GM INHALER INH (20:58)
== END 2022-05-12 21:10 | disposition home or self-care (01) ==
PROVIDERS: Emergency Medicine; Emergency Provider Emergency Medicine
DX: J06.9 Acute upper respiratory infection, unspecified (principal); J45.21 Mild intermittent asthma with (acute) exacerbation; I10 Essential (primary) hypertension; Z20.822 Contact with and (suspected) exposure to COVID-19
CPT/HCPCS: 0241U; 36415; 71045; 80053; 83605; 83880; 84484; 85025; 85610; 93005; 94640; 99284; A9270

== ENCOUNTER → 2024-08-14 11:20 | Outpatient (CLI) | payer MEDICARE, MEDICAID, SELFPAY ==
--- NOTE | 2024-08-14 11:22 | DI.RAD.S_ITS ---
PROCEDURE: XR CHEST 2V INDICATIONS: SOB TECHNIQUE: 2 views of the chest were acquired. COMPARISON: [facility], CR, XR CHEST 1V, 05/12/2022, 19:45. FINDINGS: Surgical changes and devices: None. Lungs and pleura: Lungs are clear. No pleural effusions or pneumothorax. Mediastinum: Mediastinal contours are normal. Heart size is normal. Bones and chest wall: No suspicious bony abnormalities. Soft tissues appear unremarkable. IMPRESSION: No acute cardiopulmonary abnormality is seen. Dictated by: Alon Pierce M.D. on 08/15/2024 at 3:12 Approved by: Alon Pierce M.D. on 08/15/2024 at 3:14
== END ==
PROVIDERS: PCP Family Medicine; Referring Provider Family Medicine; Visit Provider Family Medicine
DX: R06.02 Shortness of breath (principal)
CPT/HCPCS: 71046

== ENCOUNTER → 2024-10-16 11:22 | Outpatient (CLI) | payer MEDICARE, MEDICAID, SELFPAY ==
[2024-10-16 12:30] LABS: Hemoglobin A1C% w Est Avg Glu 5.4 % (4.0-6.0)
[2024-10-16 12:36] LABS: Alanine Aminotransferase 22 IU/L (<35); Albumin 4.4 g/dL (3.5-5.0); Albumin Globulin Ratio 1.6 (1.0-2.8); Alkaline Phosphatase 60 U/L (38-126); Blood Urea Nitrogen 19 mg/dL (7-17); Calcium 9.2 mg/dL (8.4-10.2); Carbon Dioxide 27 mmol/L (22-32); Chloride 102 mmol/L (98-107); Cholesterol 234 mg/dL (140-199); Estimated Glomerular Filt Rate > 60 mL/min (>60); Globulin 2.8 g/dL (1.7-4.1); Glucose 92 mg/dL (70-99); HDL Cholesterol 63 mg/dL (40-60); HEMOLYSIS < 15 (0-50); Potassium 4.3 mmol/L (3.4-5.1); Sodium 138 mmol/L (137-145); Total Protein 7.2 g/dL (6.3-8.2); Triglycerides 201 mg/dL (35-150)
[2024-10-16 12:42] LABS: Vitamin D 25 Hydroxy (D3) 49.0 ng/mL (30.0-100.0)
[2024-10-16 12:49] LABS: Microalbumi Creatinin Ratio Ur 23.0 ug/mg CR (<30)
[2024-10-16 12:51] LABS: Free T3, Triiodothyronine Free 4.40 pg/mL (2.77-5.27)
[2024-10-16 13:05] LABS: TSH w/ Reflex to FT4 2.06 uIU/mL (0.47-4.68)
== END ==
PROVIDERS: PCP Family Medicine; Referring Provider Family Medicine; Visit Provider Family Medicine
DX: E66.9 Obesity, unspecified (principal); I10 Essential (primary) hypertension; E55.9 Vitamin D deficiency, unspecified
CPT/HCPCS: 36415; 80053; 80061; 82043; 82306; 82570; 83036; 84443; 84481

== ENCOUNTER 2024-12-18 09:42 | Emergency (ER) | payer MEDICARE, MEDICAID, SELFPAY ==
--- NOTE | 2024-12-18 09:59 | PC.NURSE ---
This RN attempted to call patient for triage but unable to locate patient.
[2024-12-18 10:16] VITALS: BP 145/70; PULSE 88; RESP 20; TEMP 36.4; O2SAT 96; BMI 36.6
--- NOTE | 2024-12-18 10:21 | EKG_ITS ---
[address] [address] Test Date: 2024-12-18 Pat Name: Diana Sam Department: [facility] Room: Gender: Female Claims Examiner: YARIEL : 1960 Requested By: Order Number: [id number] Reading MD: Luis Enrique Donahue MD Measurements Intervals [place] Rate: 60 P: 26 AL: 142 QRS: 19 QRSD: 80 T: 56 QT: 440 QTc: 440 Interpretive Statements Normal sinus rhythm Cannot rule out Anterior infarct , age undetermined Electronically Signed On 12-18-2024 16:37:26 PST by Luis Enrique Donahue MD
--- NOTE | 2024-12-18 10:21 | DI.RAD.S_ITS ---
PROCEDURE: XR CHEST 1V INDICATIONS: Shortness of breath TECHNIQUE: One view of the chest was acquired. COMPARISON: [facility], CR, XR CHEST 2V, 08/14/2024, 11:17. FINDINGS: Surgical changes and devices: None. Lungs and pleura: Lungs are clear. No pleural effusions or pneumothorax. Mediastinum: Mediastinal contours appear normal. Heart size is normal. Bones and chest wall: No suspicious bony lesions. Overlying soft tissues appear unremarkable. IMPRESSION: No acute cardiopulmonary abnormality is seen. Dictated by: Michael Chen M.D. on 12/18/2024 at 10:37 Approved by: Michael Chen M.D. on 12/18/2024 at 10:38
[2024-12-18] MEDS: ALBUTEROL/IPRATROPIUM 3 ML AMPUL INH (11:08)
[2024-12-18 11:15] LABS: Add Manual Diff / Slide Review NO; Hematocrit 37.7 % (36-46); Hemoglobin 13.0 g/dL (12.0-16.0); Lymphocytes Absolute Auto 1900 /uL (1100-4500); Mean Corpuscular HGB Conc 34.5 % (30-36); Mean Corpuscular Hemoglobin 28.5 PG (26-34); Mean Corpuscular Volume 82.5 fL (80-100); Platelet Count 315 X10^3/uL (150-400)
[2024-12-18 11:28] LABS: INR 0.9 (0.9-1.3); Prothrombin Time 10.5 SECONDS (9.4-12.5)
[2024-12-18 11:32] LABS: Alanine Aminotransferase 20 IU/L (<35); Albumin 4.1 g/dL (3.5-5.0); Albumin Globulin Ratio 1.3 (1.0-2.8); Alkaline Phosphatase 61 U/L (38-126); Blood Urea Nitrogen 20 mg/dL (7-17); Calcium 8.3 mg/dL (8.4-10.2); Carbon Dioxide 25 mmol/L (22-32); Chloride 104 mmol/L (98-107); Estimated Glomerular Filt Rate > 60 mL/min (>60); Globulin 3.2 g/dL (1.7-4.1); Glucose 133 mg/dL (70-99); HEMOLYSIS < 15 (0-50); Lactate (Lactic Acid) 0.9 mmol/L (0.7-2.1); Potassium 3.7 mmol/L (3.4-5.1); Sodium 139 mmol/L (137-145); Total Protein 7.3 g/dL (6.3-8.2)
[2024-12-18 11:44] LABS: NT-proBNP (BNP-Adult 18+) 87 pg/mL (<125); Troponin I < 0.012 ng/mL (0.01-0.034)
[2024-12-18 11:49] LABS: COVID-19 CEPHEID 4-PLEX PCR Negative (Negative); Influenza A - CEPHEID Flu A NEGATIVE (NEGATIVE); Influenza B - CEPHEID Flu B NEGATIVE (NEGATIVE)
--- NOTE | 2024-12-18 19:08 | ED.SOB ---
HPI - SOB/Dyspnea <Kerline Zambrano PA-C - Last Filed: 12/19/24 11:23> General Chief Complaint: Shortness of Breath/Dyspnea Stated Complaint: SOB 1 day Time Seen by Provider: 12/18/24 12:54 Source: patient Mode of arrival: Ambulatory Limitations: no limitations History of Present Illness HPI Narrative: 64-year-old female with past medical history hypertension presents to the ED with 3-4 days of shortness of breath, wheezing. Patient states that she came down with a cold last week, following which her symptoms started. Patient complains of nasal congestion, cough, wheezing, shortness of breath. No chest pain, fever, chills, nausea, vomiting, abdominal pain, dysuria, lightheadedness, dizziness, syncope. Related Data Home Medications ?Medication ?Instructions ?Recorded ?Confirmed amlodipine 10 mg tablet 10 mg PO DAILY 08/14/24 11/27/24 candesartan 4 mg tablet 4 mg PO DAILY 08/14/24 11/27/24 Previous Rx's ?Medication ?Instructions ?Recorded albuterol sulfate 90 mcg/actuation 2 inh inhalation QID #8.5 grams 08/14/24 aerosol inhaler sertraline 25 mg tablet 25 mg PO DAILY #30 tabs 10/16/24 tirzepatide 2.5 mg/0.5 mL 2.5 mg (0.5 mL) SUBCUT QWEEK #2 mL 10/16/24 subcutaneous pen injector bupropion HCl 150 mg 24 hr tablet, 150 mg PO QAM #90 tabs 11/27/24 extended release albuterol sulfate 90 mcg/actuation 2 puff inhalation Q6H PRN 12/18/24 aerosol inhaler shortness of breath or wheezing #6.7 grams Allergies Allergy/AdvReac Type Severity Reaction Status Date / Time latex Allergy Mild Rash Verified 12/18/24 10:16 Review of Systems <Kerline Zambrano PA-C - Last Filed: 12/19/24 11:23> Constitutional Constitutional: Denies chills, Reports fatigue, Denies fever(s), Denies frequent falls, Denies lethargy and Denies weakness Eyes Eyes: Denies change in vision, Denies eye discharge, Denies irritation and Denies loss of vision ENT Ears, Nose, Mouth, and Throat: Denies change in voice, Denies dizziness, Reports nasal congestion, Reports nasal discharge, Denies neck pain, Denies sore throat and Denies throat swelling Cardiovascular Cardiovascular: Denies chest pain, Denies irregular heart rhythm, Denies lightheadedness, Denies palpitations, Reports dyspnea, Denies dyspnea on exertion and Denies orthopnea Respiratory Respiratory: Reports cough, Reports dyspnea, Denies dyspnea on exertion and Reports wheezing Gastrointestinal Gastrointestinal: Denies abdominal pain, Denies change in bowel habits, Denies diarrhea, Denies nausea and Denies vomiting Musculoskeletal Musculoskeletal: Denies neck pain and Denies numbness Integumentary/Breasts Skin/Breast: Denies pruritus, Denies erythema, Denies rash and Denies wounds Neurologic Neurologic: Denies behavioral changes, Denies confusion, Denies dizziness, Denies frequent falls, Denies loss of vision, Denies numbness and Denies weakness Psychiatric Psychiatric: Denies anxiety, Denies behavioral changes, Denies confusion, Denies depression, Denies homicidal ideation and Denies suicidal ideation Endocrine Endocrine: Reports fatigue, Denies flushing and Denies palpitations Hematologic/Lymphatic Hematologic/Lymphatic: Denies easy bruising Allergic/Immunologic Allergic/Immunologic: Denies urticaria, Denies throat swelling and Reports wheezing Patient History <Kerline Zambrano PA-C - Last Filed: 12/19/24 11:23> Medical History Tobacco abuse Sleep apnea Anxiety Hypertension Social History Smoking Status: Former smoker Smoking Status: Former smoker tobacco type: cigarettes alcohol intake frequency: 0-2 drinks per day Exam <Kerline Zambrano PA-C - Last Filed: 12/19/24 11:23> Narrative Exam Narrative: Const General:?cooperative, healthy appearing and comfortable [facility] Head:?normal to inspection Ears:?hearing grossly normal bilaterally Nose:?external nose normal Face and sinus:?normal facial exam and sinuses nontender Mouth:?oral mucosae normal Throat:?posterior oropharynx normal Eyes General:?appearance normal, both eyes and all related structures Neck Neck:?normal visual inspection and no lymphadenopathy noted Resp Effort & Inspection:?normal respiratory effort Auscultation:? Generalized, bilateral wheezes Cardio Rate:?regular rate Rhythm:?regular rhythm Neuro General:?patient alert, patient awake and patient oriented x3 Initial Vital Signs Initial Vital Signs: Vital Signs Temperature 97.6 F 12/18/24 10:16 Pulse Rate 88 12/18/24 10:16 Respiratory Rate 20 12/18/24 10:16 Blood Pressure 145/70 H 12/18/24 10:16 Pulse Oximetry 96 12/18/24 10:16 Oxygen Delivery Method Room Air 12/18/24 10:16 <Kat Olivas MD - Last Filed: 12/19/24 11:26> Initial Vital Signs Initial Vital Signs: Vital Signs Temperature 97.6 F 12/18/24 10:16 Pulse Rate 88 12/18/24 10:16 Respiratory Rate 20 12/18/24 10:16 Blood Pressure 145/70 H 12/18/24 10:16 Pulse Oximetry 96 12/18/24 10:16 Oxygen Delivery Method Room Air 12/18/24 10:16 Course <Kerline Zambrano PA-C - Last Filed: 12/19/24 11:23> Orders Ordered: Discontinued Medications Albuterol/Ipratropium (Albuterol/Ipratropium 3 Ml Ampul) 3 ml INH NOW ONE Stop: 12/18/24 11:05 Last Admin: 12/18/24 11:08 Dose: 3 ml Documented By: MR <Kat Olivas MD - Last Filed: 12/19/24 11:26> Orders Ordered: Discontinued Medications Albuterol/Ipratropium (Albuterol/Ipratropium 3 Ml Ampul) 3 ml INH NOW ONE Stop: 12/18/24 11:05 Last Admin: 12/18/24 11:08 Dose: 3 ml Documented By: MDM - SOB/Dyspnea <Kerline Zambrano PA-C - Last Filed: 12/19/24 11:23> Lab Data 12/18/24 11:00 12/18/24 11:00 Labs: Lab Results 12/18/24 12/18/24 Range/Units 11:00 11:05 WBC 8.1 (4.5-11.0) X10^3/uL RBC 4.57 (4.0-5.2) X10^6/uL Hgb 13.0 (12.0-16.0) g/dL Hct 37.7 (36-46) % MCV 82.5 (80-100) fL MCH 28.5 (26-34) PG MCHC 34.5 (30-36) % RDW 13.0 (11.6-14.8) % Plt Count 315 (150-400) X10^3/uL Neut % (Auto) 67.0 (50-75) % Lymph % (Auto) 23.2 L (25-40) % [place] % (Auto) 7.6 (3-14) % Eos % (Auto) 1.8 L (2-4) % Baso % (Auto) 0.4 (0-2) % Neut # (Auto) 5400 (2494-1421) /uL Lymph # (Auto) 1900 (7638-0065) /uL [place] # (Auto) 600 (0-900) /uL Eos # (Auto) 100 (0-450) /uL Baso # (Auto) 0 (0-100) /uL PT 10.5 (9.4-12.5) SECONDS INR 0.9 (0.9-1.3) Sodium 139 (137-145) mmol/L Potassium 3.7 (3.4-5.1) mmol/L Chloride 104 (98-107) mmol/L Carbon Dioxide 25 (22-32) mmol/L BUN 20 H (7-17) mg/dL Creatinine 0.80 (0.52-1.04) mg/dL Estimated GFR > 60 (>60) mL/min BUN/Creatinine Ratio 25.0 H (6-22) Glucose 133 H (70-99) mg/dL Lactate 0.9 (0.7-2.1) mmol/L Calcium 8.3 L (8.4-10.2) mg/dL Total Bilirubin 0.3 (0.2-1.3) mg/dL AST 21 (14-36) IU/L ALT 20 (<35) IU/L Alkaline Phosphatase 61 (38-126) U/L Troponin I < 0.012 (0.01-0.034) ng/mL NT-Pro-B Natriuret Pep 87 (<125) pg/mL Total Protein 7.3 (6.3-8.2) g/dL Albumin 4.1 (3.5-5.0) g/dL Globulin 3.2 (1.7-4.1) g/dL Albumin/Globulin Ratio 1.3 (1.0-2.8) SARS-CoV-2 (PCR) Negative (Negative) Influenza A (RT-PCR) Flu a negative (NEGATIVE) Influenza B (RT-PCR) Flu b negative (NEGATIVE) RSV (PCR) Negative (Negative) MDM Narrative Medical decision making narrative: 64-year-old female with past medical history hypertension presents to the ED with 3-4 days of shortness of breath, wheezing. Patient's symptoms most consistent with a reactive airway from a URI. Cardiac workup was also performed to rule out ACS, CHF. EKG is normal sinus rhythm, no acute ST-T changes, no axis deviation. Chest x-ray with no acute cardiopulmonary abnormalities. Labs unremarkable. Troponin and BNP within normal limits. Respiratory panel is negative. Did consider PE/DVT, however history, physical exam makes it unlikely. On physical exam, patient has generalized wheezing, most consistent with a reactive airway. Patient's symptoms also improved with a dose of albuterol. Patient given a spacer. Prescribed albuterol. Recommend follow-up with PCP as soon as possible. ED return precautions discussed with patient. Patient verbalized understanding. Medical records reviewed: Yes <Kat Olivas MD - Last Filed: 12/19/24 11:26> Lab Data Labs: Lab Results 12/18/24 12/18/24 Range/Units 11:00 11:05 WBC 8.1 (4.5-11.0) X10^3/uL RBC 4.57 (4.0-5.2) X10^6/uL Hgb 13.0 (12.0-16.0) g/dL Hct 37.7 (36-46) % MCV 82.5 (80-100) fL MCH 28.5 (26-34) PG MCHC 34.5 (30-36) % RDW 13.0 (11.6-14.8) % Plt Count 315 (150-400) X10^3/uL Neut % (Auto) 67.0 (50-75) % Lymph % (Auto) 23.2 L (25-40) % [place] % (Auto) 7.6 (3-14) % Eos % (Auto) 1.8 L (2-4) % Baso % (Auto) 0.4 (0-2) % Neut # (Auto) 5400 (2092-3286) /uL Lymph # (Auto) 1900 (5330-4240) /uL [place] # (Auto) 600 (0-900) /uL Eos # (Auto) 100 (0-450) /uL Baso # (Auto) 0 (0-100) /uL PT 10.5 (9.4-12.5) SECONDS INR 0.9 (0.9-1.3) Sodium 139 (137-145) mmol/L Potassium 3.7 (3.4-5.1) mmol/L Chloride 104 (98-107) mmol/L Carbon Dioxide 25 (22-32) mmol/L BUN 20 H (7-17) mg/dL Creatinine 0.80 (0.52-1.04) mg/dL Estimated GFR > 60 (>60) mL/min BUN/Creatinine Ratio 25.0 H (6-22) Glucose 133 H (70-99) mg/dL Lactate 0.9 (0.7-2.1) mmol/L Calcium 8.3 L (8.4-10.2) mg/dL Total Bilirubin 0.3 (0.2-1.3) mg/dL AST 21 (14-36) IU/L ALT 20 (<35) IU/L Alkaline Phosphatase 61 (38-126) U/L Troponin I < 0.012 (0.01-0.034) ng/mL NT-Pro-B Natriuret Pep 87 (<125) pg/mL Total Protein 7.3 (6.3-8.2) g/dL Albumin 4.1 (3.5-5.0) g/dL Globulin 3.2 (1.7-4.1) g/dL Albumin/Globulin Ratio 1.3 (1.0-2.8) SARS-CoV-2 (PCR) Negative (Negative) Influenza A (RT-PCR) Flu a negative (NEGATIVE) Influenza B (RT-PCR) Flu b negative (NEGATIVE) RSV (PCR) Negative (Negative) Discharge Plan Departure Patient Disposition: Home Clinical Impression: SOB (shortness of breath) Instructions: DI for Viral Upper Respiratory Infection -- Adult Activity Restrictions/Additional Instructions: You were evaluated in the emergency department today for shortness of breath following a viral upper respiratory infection. Your chest x-ray, EKG and other tests were normal today. It appears you have a viral upper respiratory infection that is causing you to wheeze and feels short of breath. You were given a treatment of albuterol via nebulizer with good improvement. You are being prescribed an inhaler with albuterol to use every 6 hours until your symptoms resolve. Please use the inhaler with a spacer. It is also helpful to drink a tall glass of water after you use the inhaler. Please continue good hydration. Return to the ED if you have worsening symptoms. Prescriptions: New albuterol sulfate 90 mcg/actuation HFA aerosol inhaler 2 puff inhalation Q6H PRN (Reason: shortness of breath or wheezing) Qty: 6.7 0RF No Action candesartan 4 mg tablet 4 mg PO DAILY amlodipine 10 mg tablet 10 mg PO DAILY albuterol sulfate 90 mcg/actuation HFA aerosol inhaler 2 inh inhalation QID Qty: 8.5 0RF sertraline 25 mg tablet 25 mg PO DAILY Qty: 30 3RF tirzepatide 2.5 mg/0.5 mL pen injector 2.5 mg SUBCUT QWEEK Qty: 2 0RF Rx Instructions: for 4 weeks bupropion HCl 150 mg tablet extended release 24 hr 150 mg PO QAM Qty: 90 3RF Referrals: Merari Ashley MD [Primary Care Provider, Family Practice] Stand Alone Forms: Patient Portal/API ED Sign-out <Kat Olivas MD - Last Filed: 12/19/24 11:26> Cosign ED Attending [facility] Attestation: I was available for consultation during this patient's emergency department visit. This chart is signed by myself for administrative purposes only. I did not have direct contact with this patient during this visit. They were seen independently by the APC.
== END 2024-12-18 13:32 | disposition home or self-care (01) ==
PROVIDERS: Emergency Medicine; Emergency Provider Student in an Organized Health Care Education/Training Program; PCP Family Medicine
DX: J06.9 Acute upper respiratory infection, unspecified (principal); R06.02 Shortness of breath
CPT/HCPCS: 36415; 71045; 80053; 83605; 83880; 84484; 85025; 85610; 87637; 93005; 94640; 99283; 99284